=== PATIENT | male | born 1965 | race Hispanic/Latino ===

== ENCOUNTER → 2017-10-02 | Outpatient (CLI) | payer BC ==
--- NOTE | 2017-10-02 17:55 | Diagnostic Imaging Report ---
PROCEDURE:TESTICULAR ULTRASOUND COMPARISON:Testicular ultrasound 04/04/17 and 04/22/2012 INDICATIONS:HYDROCELE, UNSPECIFIED TECHNIQUE: Ayala-scale and color Doppler images of the testicles and scrotal contents were obtained. Duplex imaging with spectral waveform analysis was performed of the testicular arteries and veins. FINDINGS: RIGHT SCROTUM: Testicle: 2.3 x 3.5 x 5.1 cm Epididymal head: 13 x 19 x 8 mm Hydrocele: None Varicocele: Present Mass: There are scattered testicular microcalcifications. These were present on previous exams. No soft tissue mass. Cyst in the epididymal head measures 4 x 5 mm. Epididymal head cyst on the most recent previous exam measured 5 x 5 mm. LEFT SCROTUM: Testicle: 2.2 x 3.3 x 5.0 cm Epididymal head: 14 x 6 x 10 mm Hydrocele: None Varicocele: Present. Mass: There are scattered testicular microcalcifications. These were present on previous exams. No soft tissue mass. CONCLUSION: 1. Stable scattered testicular microcalcifications in each testis. No testicular soft tissue mass. 2. Right epididymal head cyst. 3. Bilateral varicoceles. 4. No hydroceles. Dictated by: Theodore Johnson M.D. on 10/02/2017 at 18:03 Electronically approved by: Theodore Johnson M.D. on 10/02/2017 at 18:03
--- NOTE | 2017-10-02 17:56 | Diagnostic Imaging Report ---
Please accession number [id number] for report. Electronically approved by: Theodore Johnson M.D. on 10/02/2017 at 18:04
== END ==
LOC: US 16:41
PROVIDERS: ATTEND Urology
DX: N43.3 Hydrocele, unspecified (principal)
CPT/HCPCS: 76870; 93976